=== PATIENT | male | born 1955 | race Caucasian/White ===

== ENCOUNTER → 2017-06-21 | Outpatient (CLI) | payer OTHER ==
[~2017-06-21] MED LIST: ALLO100T PO; ASPI-435 PO; BENZ100C84 PO; CLR10 PO; COEN1CAP17 PO; GLUC15002 PO; MULT-506 PO; OMEG10007 PO; OXYC-57 PO; TPRSR/25 PO; ZNTT/150 PO
--- NOTE | 2017-06-21 14:36 | DIAGNOSTIC IMAGING REPORT ---
TWO VIEW CHEST CLINICAL HISTORY: Preoperative examination. Chronic lymphocytic leukemia. FINDINGS: PA and lateral chest radiographs are compared to study dated 08/23/2015. The cardiomediastinal silhouette is unremarkable. There is patchy airspace consolidation identified in the right upper lobe. Milder airspace opacities in the right midlung and at the left lung base. No pleural effusion is identified. There is no pneumothorax. The bony thorax appears intact. IMPRESSION: There is multifocal airspace consolidation identified, greatest in the right upper lobe as detailed above. Correlate clinically for evidence of an infectious/inflammatory pneumonitis. Radiographic follow-up to resolution is recommended. Electronically signed by: Bolivar Mancilla M.D. 06/21/2017 2:34 PM Dictated Date/Time: 06/21/2017 2:31 PM
== END | disposition home or self-care (01) ==
LOC: C.RAD 14:16
PROVIDERS: ATTEND Surgery
DX: C91.10 Chronic lymphocytic leukemia of B-cell type not having achieved remission (principal)

== ENCOUNTER 2017-06-26 05:27 | Day surgery (SDC) | payer BC, OTHER ==
[2017-06-25 15:46] VITALS: BMI 31.0
[~2017-06-26] VITALS: Ht 180.3 cm; Wt 101.4 kg
[~2017-06-26 05:27] MED LIST changes: -BENZ100C84 PO; -OXYC-57 PO
[2017-06-26] MEDS ORDERED: BENZ100C84 PO ×2 (05:52)
[2017-06-26 05:54] VITALS: BP 123/60; PULSE 73; TEMP 36.6; O2SAT 98; Ht 180.3 cm; Wt 101.4 kg
[2017-06-26] MEDS ORDERED: LACTATED RINGER'S 1000ML 1,000 ML IV SCH (06:00)
[2017-06-26] MEDS ORDERED: CEFAZOLIN 2000MG IV PUSH 15 ML IV SCH (06:00)
[2017-06-26] MEDS ORDERED: BUPIVACAINE 0.5 % 5 MG/1 ML MPF 30ML VIAL ONE (07:03)
[2017-06-26] MEDS ORDERED: HEPARIN SOD (PORCINE) 5000 UNIT/ML 1 ML VIAL ONE (07:03)
--- NOTE | 2017-06-26 07:04 | History & Physical Bridge Note ---
H&P Re-Evaluation Bridge Note: I have examined the patient, reviewed the History & Physical and in the interval since the performance of the History & Physical I have noted the following changes of clinical significance: No changes noted
[2017-06-26] MEDS ORDERED: MIDAZOLAM HCL 1 MG/ML 2ML VIAL ONE (07:19)
[2017-06-26] MEDS ORDERED: FENTANYL CITRATE INJ 50 MCG/1 ML 2 ML VIAL ONE (07:42)
[2017-06-26] MEDS ORDERED: LIDOCAINE/EPINEPHRINE 1% 20 ML VIAL ONE (07:51)
[2017-06-26] MEDS ORDERED: PROPOFOL IV EMULSION 10 MG/ML 20 ML VIAL IV ONE (08:04)
--- NOTE | 2017-06-26 08:32 | [facility] Post Operative Brief Note ---
Immediate Operative Summary Operative Date Jun 26, 2017. Pre-Operative Diagnosis Chronic Lymphatic Leukemia Post-Operative Diagnosis same as pre-operative Procedure(s) Performed Insertion of Mediport to Left Internal Jugular with Fluoroscopy Surgeon Dr. Danny Thomson Cuprous Chloride Operator Surgeon(s) Lorin Hunter PA-C Estimated Blood Loss 10mL Findings Consistent with Post-Op Diagnosis Specimens None, Per Surgeon Drains None Anesthesia Type MAC Complication(s) none Disposition Accompanied Pt To Recover: no Disposition: Recovery Room / PACU
[2017-06-26] MEDS ORDERED: SODIUM CHLORIDE 0.9% 1000ML 1,000 ML IV SCH (08:40)
--- NOTE | 2017-06-26 08:41 | [facility] Operative Report ---
Operative Report Operative Date Jun 26, 2017. Pre-Operative Diagnosis Chronic Lymphatic Leukemia Post-Operative Diagnosis Same Procedure(s) Performed Insertion of left internal jugular vein Power Port with fluoroscopy Surgeon Dr. Danny Thomson [employer] Publications Editor Surgeon(s) Lorin Hunter PA-C Estimated Blood Loss 10mL Findings Left internal jugular vein accessed on first attempt with real-time ultrasound guidance. Port tunneled to the chest incision and positioned under fluoroscopic guidance. Draws and flushes easily conclusion of case. Chest x- ray pending. Specimens None, Per Surgeon Drains None Anesthesia MAC Complication(s) None Disposition Recovery Room / PACU Indications 62-year-old male with recently diagnosed CLL, as needed for permanent IV access. Plan for insertion of PowerPort. The risks of the procedure were discussed, all questions were answered, and the patient agreed to proceed with surgery as planned. Description of Procedure The patient was properly identified, consented, and taken to the operating room where she was placed in the supine position with both arms tucked and a shoulder roll placed vertically. Monitored anesthesia care was induced. SCDs and a safety belt were placed. Preoperative antibiotics were administered. The patient's chest and neck was prepped and draped in the standard sterile fashion. Surgical timeout was performed and all parties were in agreement that this was the correct patient and procedure to be performed and we continued as planned. The patient was placed in Trendelenburg position. Local anesthetic was injected along the skin incision. Using real time ultrasound guidance, the left internal jugular vein was accessed using the access needle. The wire was placed and the needle was removed. Fluoroscopy confirmed placement into the internal jugular vein extending into the superior vena cava. Transverse skin incision was made in the chest and a pocket was created for the port. The tunneling device was used to pass the catheter through the chest incision into the neck incision. The dilator and peel-away sheath were inserted over the wire. The catheter was then inserted through the peel-away sheath and fluoroscopy confirmed placement into the superior vena cava. The catheter was cut and attached to the port. The port was secured into place with 3-0 Prolene sutures. A final fluoroscopic x-ray revealed good placement of the port. The wound was irrigated and hemostasis was confirmed. The skin was closed with interrupted 3-0 Vicryl deep dermal sutures, followed by 4-0 Monocryl running subcuticular suture. Dermabond was placed over the wound. The port was accessed and lisa blood easily and flushed easily. It was flushed with heparinized saline. The patient taken to the PACU where he recovered without apparent incident. All sponge, instrument and needle counts were correct at the conclusion of the procedure. The patient tolerated the procedure well. The physician's administrative services assistant was present and scrubbed for the entirety of the case. She was essential and positioning the patient, prepping and draping, retraction exposure, and closure of the skin and application of dressings. I attest to the content of the Intraoperative Record and any orders documented therein. Any exceptions are noted below.
[2017-06-26] MEDS ORDERED: OXYC-57 PO ×2 (08:44)
[2017-06-26] MEDS ORDERED: ATROPINE SULFATE 0.1 MG/ML 5ML SYR IV PRN (08:45)
[2017-06-26] MEDS ORDERED: EpHEDrine SULFATE INJ 50 MG/ML AMP IV PRN (08:45)
[2017-06-26] MEDS ORDERED: ONDANSETRON INJ 2 MG/ML 2 ML VIAL IV PRN (08:45)
[2017-06-26] MEDS ORDERED: OXYCODONE/ACETAMINOPHEN 5-325 TAB PO PRN ×2 (08:45)
--- NOTE | 2017-06-26 08:46 | Discharge Instructions ---
Discharge Instructions Date of Service Jun 26, 2017. Admission Reason for Admission: Chronic Lymphatic Leukemia Discharge Discharge Diagnosis / Problem: Chronic Lymphatic Leukemia Discharge Goals Goal(s): Decrease discomfort, Improve function Activity Recommendations Activity Limitations: as noted below Lifting Limitations: no more than 10 pounds Exercise/Sports Limitations: until after follow-up appointment May Resume Sexual Activity: after follow-up appointment Shower/Bathe: tomorrow Driving or Machine Use: resume 1 day after discharge . Instructions / Follow-Up Instructions / Follow-Up Please follow-up with Dr. Thomson in the General Surgery Clinic in 1-2 weeks. Please call the clinic at [phone] to make an appointment if you do not have one already. Please call the office with any questions or concerns. You may resume your Aspirin therapy tomorrow, 06/27/2017. Current Hospital Diet Patient's current hospital diet: Discharge Diet Recommended Diet: Regular Diet Procedures Procedures Performed: Insertion of Mediport to Left Internal Jugular with Fluoroscopy Pending Studies Studies pending at discharge: no Medical Emergencies . Who to Call and When: Medical Emergencies: If at any time you feel your situation is an emergency, please call 911 immediately. . Non-Emergent Contact Non-Emergency issues call your: Primary Care Provider, Surgeon Call Non-Emergent contact if: temperature is above 101.5, your pain is not controlled, wound has increased drainage, wound has increased redness . "Provider Documentation" section prepared by Lorin Hunter. . VTE Core Measure Inpt VTE Proph given/why not?: SCD's [place] Drug Monitoring Program Search Results: patient reviewed within database, no issues identified
--- NOTE | 2017-06-26 09:02 | Anesthesiology Progress Note ---
Anesthesia Post Op Note Date & Time Jun 26, 2017 at 09:02 Vital Signs Pain Intensity: 0 Vital Signs Past 12 Hours Date Time Temp Pulse Resp B/P (MAP) Pulse Ox O2 Delivery O2 Flow Rate FiO2 06/26/17 09:00 36.6 67 16 119/69 98 06/26/17 08:50 68 18 110/70 97 06/26/17 08:41 36.4 67 18 119/69 97 Nasal Cannula 2 06/26/17 05:54 36.6 73 18 123/60 (81) 98 Room Air Notes Mental Status: alert / awake / arousable, participated in evaluation Pt Amnestic to Procedure: Yes Nausea / Vomiting: adequately controlled Pain: adequately controlled Airway Patency, RR, SpO2: stable & adequate BP & HR: stable & adequate Hydration State: stable & adequate Anesthetic Complications: no major complications apparent
[2017-06-26 09:35] VITALS: BP 109/62; PULSE 80; TEMP 36.6; O2SAT 96
--- NOTE | 2017-06-26 09:48 | DIAGNOSTIC IMAGING REPORT ---
SINGLE VIEW CHEST CLINICAL HISTORY: Status post infusion port placement. Chronic lymphocytic leukemia. FINDINGS: An AP, portable, upright chest radiograph is compared to study dated 06/21/2017. The examination is degraded by portable technique and patient rotation. A right internal jugular central venous infusion port is new from previous. The tip of the catheter projects over the SVC. A portion of the catheter is not included in the examination. The heart is top normal for projection. The pulmonary vasculature is noncongested. Foci of the mere suggests adenopathy. Airspace opacities are again seen in the right upper lung. These are unchanged to minimally cleared from 06/21/2017. No large pleural effusion or pneumothorax is seen. The skeletal structures appear osteopenic. The bony thorax is grossly intact. IMPRESSION: 1. A left internal jugular central venous infusion port has been placed. The tip of the catheter projects over the SVC. 2. No pneumothorax is identified post procedure. 3. Airspace opacities in the right upper lung are unchanged to minimally cleared from 06/21/2017. Continued follow-up to resolution is recommended. Electronically signed by: Bolivar Mancilla M.D. 06/26/2017 9:46 AM Dictated Date/Time: 06/26/2017 9:44 AM
--- NOTE | 2017-06-26 11:04 | [facility] Operative Report ---
Operative Report Operative Date Jun 26, 2017. Pre-Operative Diagnosis Chronic Lymphatic Leukemia Surgeon Lanette Thomson D.O. Findings Real-time ultrasound guidance was used to access the left internal jugular vein. Fluoroscopy was used to confirm placement into this SVC throughout the procedure, and interpreted by the surgeon. A total of 10 seconds of fluoroscopy time was performed. Disposition Recovery Room / PACU I attest to the content of the Intraoperative Record and any orders documented therein. Any exceptions are noted below.
== END 2017-06-26 10:00 | disposition home or self-care (01) ==
LOC: C.ACU 05:27
PROVIDERS: ATTEND Surgery
DX: C91.10 Chronic lymphocytic leukemia of B-cell type not having achieved remission (principal); E78.5 Hyperlipidemia, unspecified; K21.9 Gastro-esophageal reflux disease without esophagitis; E78.00 Pure hypercholesterolemia, unspecified; Z79.82 Long term (current) use of aspirin; Z82.49 Family history of ischemic heart disease and other diseases of the circulatory system; Z88.8 Allergy status to other drugs, medicaments and biological substances; D86.9 Sarcoidosis, unspecified; Z68.31 Body mass index [BMI] 31.0-31.9, adult; Z98.41 Cataract extraction status, right eye; Z98.42 Cataract extraction status, left eye

== ENCOUNTER → 2017-12-11 | Outpatient (CLI) | payer OTHER ==
[~2017-12-11] MED LIST changes: -COEN1CAP17 PO; +RANI150T85 PO; +TICA1TAB PO; -TPRSR/25 PO; +VALA500T60 PO; -ZNTT/150 PO; +ZTA10 PO
[2017-12-11 08:28] LABS: BASO % 0.6 %; BASO ABS # 0.03 K/uL (0-0.2); EOS % 2.3 %; EOS ABS # 0.12 K/uL (0-0.5); HEMATOCRIT 40.3 % (42-52); HEMOGLOBIN 14.2 g/dL (14.0-18.0); IG# 0.01 K/uL (0.00-0.02); LYMPH % 10.4 %; LYMPH ABS # 0.53 K/uL (1.2-3.4); MEAN CELL VOLUME 91.4 fL (80-100); MEAN CORPUSCULAR HEMOGLOBIN 32.2 pg (25-34); MEAN CORPUSCULAR HGB CONC 35.2 g/dl (32-36); MEAN PLATELET VOLUME 9.6 fL (7.4-10.4); MONO % 6.1 %; MONO ABS # 0.31 K/uL (0.11-0.59); NEUT % 80.4 %; NEUT ABS # 4.12 K/uL (1.4-6.5); PLATELET COUNT 146 K/uL (130-400); RED CELL DISTRIBUTION WIDTH CV 15.2 % (11.5-14.5); RED CELL DISTRIBUTION WIDTH SD 50.8 fL (36.4-46.3); WHITE BLOOD COUNT 5.12 K/uL (4.8-10.8)
== END | disposition home or self-care (01) ==
LOC: C.LABSPEC 08:20
PROVIDERS: ATTEND Nurse Practitioner Family
DX: C91.10 Chronic lymphocytic leukemia of B-cell type not having achieved remission (principal)

== ENCOUNTER → 2017-12-18 | Outpatient (CLI) | payer OTHER ==
[2017-12-18 09:08] LABS: BASO % 0.7 %; BASO ABS # 0.04 K/uL (0-0.2); EOS % 2.4 %; EOS ABS # 0.13 K/uL (0-0.5); HEMATOCRIT 39.8 % (42-52); HEMOGLOBIN 13.9 g/dL (14.0-18.0); IG# 0.01 K/uL (0.00-0.02); LYMPH % 7.7 %; LYMPH ABS # 0.42 K/uL (1.2-3.4); MEAN CELL VOLUME 91.9 fL (80-100); MEAN CORPUSCULAR HEMOGLOBIN 32.1 pg (25-34); MEAN CORPUSCULAR HGB CONC 34.9 g/dl (32-36); MEAN PLATELET VOLUME 9.4 fL (7.4-10.4); MONO % 7.5 %; MONO ABS # 0.41 K/uL (0.11-0.59); NEUT % 81.5 %; NEUT ABS # 4.48 K/uL (1.4-6.5); PLATELET COUNT 150 K/uL (130-400); RED CELL DISTRIBUTION WIDTH SD 50.5 fL (36.4-46.3); WHITE BLOOD COUNT 5.49 K/uL (4.8-10.8)
[2017-12-18 09:31] LABS: ALBUMIN 3.9 gm/dl (3.4-5.0); ALT/SGPT 145 U/L (12-78); AST/SGOT 74 U/L (15-37); BLOOD UREA NITROGEN 17 mg/dl (7-18); CARBON DIOXIDE 25 mmol/L (21-32); CREATININE 1.01 mg/dl (0.60-1.40); GLUCOSE 175 mg/dl (70-99); POTASSIUM 4.1 mmol/L (3.5-5.1); SODIUM 138 mmol/L (136-145)
[2017-12-18 09:32] LABS: ALKALINE PHOSPHATASE 56 U/L (45-117); TOTAL PROTEIN 6.8 gm/dl (6.4-8.2)
== END | disposition home or self-care (01) ==
LOC: C.LABSPEC 08:59
PROVIDERS: ATTEND Nurse Practitioner Family
DX: C91.10 Chronic lymphocytic leukemia of B-cell type not having achieved remission (principal)